=== PATIENT | male | born 1985 | race Two or more races ===

== ENCOUNTER 2018-11-10 00:06 | Emergency (ER) | payer MEDICAID ==
[~2018-11-10] VITALS: Ht 165.1 cm; Wt 88.5 kg
--- NOTE | 2018-11-10 00:23 | NUR ---
ED Nurse Note: pt walked in c/o LUQ abd pain x2wks and left facial pain x 4 days, pt denies n/v/d, denies constipation, pt states pain worsen on palpation. pt AA&ox4, gcs=15, skin warm and dry, resp even and unlabored on RA, -n/v/d, abd soft tender, active BS, will cont monitor.
[2018-11-10 00:25] VITALS: BP 133/83
[2018-11-10] MEDS ORDERED: Dicyclomine HCl 10mg/5ml oral soln ORAL ONE (00:45)
[2018-11-10] MEDS ORDERED: Mylanta II UD 30ml ORAL ONE (00:45)
[2018-11-10] MEDS ORDERED: Lidocaine 1% 10mg/ml/Epi 0.005mg/ml 10ml vial INJ ONE (00:45)
[2018-11-10] MEDS ORDERED: NORCO 5-325 TA1 EACH ORAL (01:15)
[2018-11-10] MEDS ORDERED: AUGMENTIN 875-1 EAC1 ORAL (01:15)
--- NOTE | 2018-11-10 01:15 | NUR ---
ED Nurse Note: I&D done at the bedside, pt tolerated well w/o difficulty, airway intact, pt signed consent, pt was informed prior to the procedure by ERMD, pt verbalized understanding and agrees with plan.
[2018-11-10 01:50] VITALS: BP 116/86
--- NOTE | 2018-11-10 01:50 | NUR ---
ED Nurse Note: pt cleared to be d/c per ERMD, pt discharge and aftercare instruction provided w/ prescription, pt education done via discussion and handout, pt advised to follow up with pcp or return to ed if changes in condition, pt verbalized understanding and agrees with plan, vss, ambulatory w/ steady gait, left w/ all belongings.
--- NOTE | 2018-11-10 21:15 | Emergency Room Report ---
History of Present Illness General Chief Complaint: Abdominal Pain Source: Patient Present Illness Allergies: Coded Allergies: No Known Allergies (Unverified , 11/10/18) Nursing Documentation-H Past Medical History: No Stated History Physical Exam Vital Signs Date Time Temp Pulse Resp B/P (MAP) Pulse Ox O2 Delivery O2 Flow Rate FiO2 11/10/18 00:13 98.1 80 16 133/83 (100) 97 Room Air Medical Decision Making Diagnostic Impression: Primary Impression: Dental abscess ER Course Patient presented for dental pain. Differential diagnosis included but was not limited to dental abscess, sanjuana's angina, submandibular abscess among others. Patient has what appears to be a dental abscess. This was incised and drained after consent was obtained. Drained moderate amount of purulent material from left side of mouth near mandible lateral to premolar. Patient tolerated well. Will be started on antibiotics. Advised to follow up with oral surgery. Last Vital Signs Date Time Temp Pulse Resp B/P (MAP) Pulse Ox O2 Delivery O2 Flow Rate FiO2 11/10/18 01:50 97.5 86 16 116/86 99 Room Air Status: improved Disposition: HOME, SELF-CARE Condition: Stable Scripts Hydrocodone Bit/Acetaminophen 5-325* (NORCO 5-325*) 1 Each Tablet 1 TAB ORAL Q4H PRN for For Pain, #12 TAB 0 Refills Prov: Houston Morales MD 11/10/18 Amoxicillin/Potassium Clav 875-125* (AUGMENTIN 875-125 TABLET*) 1 Each Tablet 1 TAB ORAL TWICE A DAY, #14 TAB Prov: Houston Morales MD 11/10/18 Referrals: NOT CHOSEN IPA/,REFERRING (PCP) Patient Instructions: Dental Abscess, [id number] Additional Instructions: [place] [facility] [place] [place]. Take antibiotics and pain medications as prescribed. Houston Morales MD Nov 10, 2018 21:15
== END 2018-11-10 01:50 | disposition home or self-care (01) ==
LOC: EMR 00:39
DX: K04.7 Periapical abscess without sinus (principal)
CPT/HCPCS: 99282